=== PATIENT | female | born 1960 | race Caucasian/White ===

== ENCOUNTER → 2023-10-04 | Outpatient (CLI) | payer MEDICARE, BC ==
--- NOTE | 2023-10-04 13:36 | P.SLEEP ---
History of Present Illness DATE: 10/04/2023 CONSULTATION/NEW PATIENT EVALUATION HISTORY OF PRESENT ILLNESS/SLEEP-WAKE EVALUATION: 63-year-old lady had been aashish luated in the sleep center for possible obstructive sleep apnea hypopnea syndrome. Patient has history of obstructive sleep apnea hypopnea syndrome diagnosed about 15 years ago in another institution. She was on treatment with BiPAP for few years and then she stopped treatment secondary to insurance problems. SLEEP SCHEDULE: Usually sleep schedule from 9:30 PM to 7 AM 7 days a week. FALLING ASLEEP: Sometimes patient may have difficulties with falling asleep, use to read in bedroom. DURING SLEEP: Patient usually stays on the side position, has loud snoring and multiple awakenings from sleep 4 times with nocturia, dry mouth and grinding teeth. No history of hypnogogical hallucinations, sleep paralysis, or cataplexy. DURING THE DAY/WAKE STATE: In the morning patient wake up tired, has problems with concentration and difficulties to place attention. Positive history of claustrophobia. [place] sleepiness scale is 4. Sometimes patient takes nap at 2 PM. PAST MEDICAL HISTORY: Hypothyroidism, hyperlipidemia, anxiety, sinuses problems, headaches, acid reflux. PAST SURGICAL HISTORY: []. MEDICATIONS: UPPP. Tonsils and adenoidectomy and surgery for nasal septum deviation, gastric sleeve surgery. SOCIAL HISTORY: Positive for short period of smoking at age of 18, alcohol consumption occasional. FAMILY HISTORY: Hypertension, heart problems, diabetes. REVIEW OF SYSTEMS: Loud snoring, multiple awakenings from sleep. No fevers. No double vision. No recent chest pain. No shortness of breath. No abdominal pain. No bleeding episodes. No blood in urine. No seizure episodes. PHYSICAL EXAMINATION: GENERAL: A pleasant patient without any distress. VITAL SIGNS: BP 145/85, HR 78, RR 12, weight 197.8 pounds, height 5 foot 1 inches, body mass index 37.2. HEENT: PERRLA, EOMI. Evaluation of oropharynx showed tongue protrudes midline, low position of soft palate Mallampati 4, no uvula. NECK: Supple. No JVD. Thyroid is not palpable. 16.5 inches in circumference. LUNGS: Clear to percussion and to auscultation. Good air exchange. No wheezing or rhonchi. HEART: S1, S2 regular. No murmurs, gallops or rubs. ABDOMEN: Soft and nontender. Bowel sounds are present. No organomegaly appreciated. EXTREMITIES: No clubbing or cyanosis. YOUNG ADULT LIBRARIAN: Awake, alert, and oriented x3. Cranial nerves 2 to 7 intact. There is no fasciculation or atrophy noted. No focal deficits observed. ASSESSMENT: 1. Loud snoring, extremely low position of soft palate Mallampati 4, wide neck 16.5 inches in circumference, multiple awakenings from sleep, history of obstructive sleep apnea in the past. Obstructive sleep apnea-hypopnea syndrome. 2. Obesity BMI 37.2. 3. Hypothyroidism. 4. Anxiety. 5 hyperlipidemia. 6 . History of sinuses problems. 7. Headaches. 8. Acid reflux. 9 . Status post UPPP, tonsillectomy, adenoidectomy and surgery for nasal septum deviation. 10. Status post gastric sleeve. PLAN: 1. Polysomnography for evaluation of patient's breathing during sleep. 2. CPAP/BiPAP titration if sleep study confirms obstructive sleep apnea- hypopnea syndrome. 3. Preferable position during sleep on the side. 4. No driving if patient feels any sleepiness. Patient is aware of civil and criminal liability for unsafe driving. 5. Sleep hygiene with regular sleep time for at least 7.5-8 hours. 6. Watching and losing weight. Thank you very much for referring this patient for consultation. Sincerely, Naun Rivas MD, PhD, FAASM. Diplomat of [place], Sleep Medicine Board by [employer] Operator [facility] [place] Sleep Note - Sleep Note Sleep Note: Temperature: Pulse Rate: Respiratory Rate: Blood Pressure: SpO2: Height: Weight: BMI: Neck Circumference:
== END | disposition home or self-care (01) ==
LOC: 3 N SLEEP 13:04
PROVIDERS: ATTEND Internal Medicine
DX: G47.33 Obstructive sleep apnea (adult) (pediatric) (principal); E66.9 Obesity, unspecified; E03.9 Hypothyroidism, unspecified; F41.9 Anxiety disorder, unspecified; E78.5 Hyperlipidemia, unspecified; J32.9 Chronic sinusitis, unspecified; K21.9 Gastro-esophageal reflux disease without esophagitis; R06.83 Snoring; R51.9 Headache, unspecified; Z68.37 Body mass index [BMI] 37.0-37.9, adult; Z99.89 Dependence on other enabling machines and devices; Z98.890 Other specified postprocedural states; Z98.84 Bariatric surgery status; Z90.89 Acquired absence of other organs
CPT/HCPCS: 99202

== ENCOUNTER 2023-10-17 19:24 | Outpatient (CLI) | payer MEDICARE, BC ==
--- NOTE | 2023-10-19 13:30 | P.PCN ---
Description of Procedure: POLYSOMNOGRAPHY REPORT PROCEDURE(S)/DATE(S): Polysomnography 10/17/2023 CLINICAL: Patient has been seen in the sleep center for evaluation of obstructive sleep apnea-hypopnea syndrome. Please see my consultation. Sleep study has been done for evaluation of patient breathing during the sleep. PROCEDURE: The standard montage for clinical polysomnography included the electroencephalogram, the electrooculogram, the mentalis surface electromyography and Lead II cardiography. The respiratory battery consisted of measurements of nasal/buccal air flow, pressure transducer measurements from nose, thoracic and/or abdominal effort and intercostal surface electromyography. Video monitoring has been done to check for any parasomnia events. Nocturnal oxyhemoglobin saturations were obtained by finger oximetry. Step-wiley titration with positive airway pressure was utilized to control the respiratory events, if necessary. RESULTS: During the diagnostic sleep study sleep efficiency was slightly decreased to 82.8%. Latency to sleep onset was normal at 21.0 min. Sleep architecture showed stage NI was slightly increased to 10.6%, Delta sleep was practically absent 0.3%, REM sleep was decreased to 10.6%. Respiratory channel showed 3 obstructive apneas, 0 mixed apneas, 0 central apneas, 108 hypopneas with lowest oxygen level 83%. Total apnea hypopnea index was 20.0. Heart rate was in the range between 67 to 74, average 70. EMG showed 0.9 periodic limb movements per hour. IMPRESSIONS: 1. Moderate obstructive sleep apnea hypopnea syndrome. 2. No significant periodic limb movements have been documented. Please see other impressions from consultation PLAN: 1. The patient will have PAP titration for correction of respiratory abnormalities during the sleep. 2. Losing weight program. 3. Sleep hygiene with regular time in bed for at least 7-1/2 hours. 4. No driving if feeling sleepiness. Thank you very much for allowing me to participate in the management of your patient. Sincerely, Naun Rivas MD, PhD, FAASM. Diplomat of [employer], Sleep Medicine Board by [employer] Jar Capper [facility] [place]
== END 2023-10-18 05:40 | disposition home or self-care (01) ==
LOC: 3 N SLEEP 19:24
PROVIDERS: ATTEND Internal Medicine
DX: G47.33 Obstructive sleep apnea (adult) (pediatric) (principal)
CPT/HCPCS: 95810

== ENCOUNTER 2023-11-13 19:33 | Outpatient (CLI) | payer MEDICARE, BC ==
--- NOTE | 2023-12-13 11:15 | P.PCN ---
Description of Procedure: CLINICAL: Titration with positive air pressure has been done for correction of respiratory abnormalities during sleep. DESCRIPTION OF PROCEDURE: The standard montage for clinical polysomnography included the electroencephalogram, the electrocardiogram, the mentalis surface electromyography and Lead II cardiography. The respiratory battery consisted of measurements of nasal /buccal air flow, pressure transducer measurements from the nose, thoracic and /or abdominal effort and intercostal surface electromyography. Video monitoring has been done to check for any parasomnia events. Nocturnal oxyhemoglobin saturations were obtained by finger oximetry. Step-wiley titration with positive airway pressure was utilized to control respiratory events. Raw data of sleep recording has been reviewed and is adequate. RESULTS: Sleep efficiency was slightly decreased to 81.7%. Latency to sleep onset was in short range 7.0 minutes.]. Sleep architecture showed stage N1 significantly increased to 17.6%, Delta sleep was normal 8.5%, REM sleep extremely short 5.6%. Heart rate was minimum 62 BPM, maximum 70 BPM, average 66 BPM. EMG showed 44.5 periodic limb movements per hour with 1.0 micriarousals per hour. PAP titration have been done with CPAP up to the pressure 14 cm H2O. Patient had problems with CPAP, switched to BPAP. BPAP titrated up to 18/14 cm H2O. The best results were at the pressure 11 and 17/13 cm H2O. Apnea hypopnea index reduced to 3.1-7.2 at that level of pressure. IMPRESSION: 1. Obstructive sleep apnea hypopnea syndrome improved with PAP treatment. 2. Significant periodic limb movements have been documented. Please see other impressions from consultation. PLAN: 1. The patient will have treatment with positive air pressure equipment with the level of pressure auto BiPAP with maximal inspiratory pressure 17 and minimal expiratory pressure 5 cm H2O and should use it every night for the whole night. 2. Watching and losing weight. 3. Sleep hygiene with regular time in bed for at least 8 hours. 4. No driving if feeling any sleepiness. 5. I will see the patient for follow up visit to explain the results of the test, recommendations, check compliance with treatment and make any necessary adjustment related to mask fitting, pressure and humidification. 6. Please check iron profile including ferritin level. Low level of iron may increase risk for periodic limb movements Thank you very much for allowing me to participate in the management of your patient. Sincerely, Naun Rivas MD, PhD, FAASM Diplomat of [place] [employer] Sleep Medicine Board of [place] [employer] Engineer of [facility] [place]
== END 2023-11-14 05:35 | disposition home or self-care (01) ==
LOC: 3 N SLEEP 19:33
PROVIDERS: ATTEND Internal Medicine
DX: G47.33 Obstructive sleep apnea (adult) (pediatric) (principal); G47.61 Periodic limb movement disorder
CPT/HCPCS: 95811

== ENCOUNTER → 2024-03-25 | Outpatient (CLI) | payer MEDICARE, BC ==
--- NOTE | 2024-04-30 11:46 | PN ---
PROGRESS NOTE DATE OF SERVICE: 03/25/2024 A 64-year-old lady has been followed in sleep center for treatment of obstructive sleep apnea-hypopnea syndrome. This is her first visit after she received CPAP equipment. The patient was able to use CPAP equipment every night, feels better with the machine, sleeps well. [place] Sleepiness Scale is 3, which is normal. No snoring. I checked CPAP unit, AutoPAP 5-17 cm of water, usage /30 nights and 24/30 nights for more than 4 hours which is great compliance. Average 7.1 hours per night. Leak is 12 L/minute, acceptable. Apnea-hypopnea index slightly increased to 7.4, which includes central apnea-hypopnea index 3.7. MEDICATIONS: 1. Levothyroxine. 2. Atorvastatin. 3. Xanax. PHYSICAL EXAMINATION: GENERAL: The patient in no distress. VITAL SIGNS: BP 167/82, HR 78, RR 16, weight 199.6 pounds, temperature 98.4. HEENT: PERRLA. EOMI. LUNGS: Clear. HEART: S1, S2 regular. ABDOMEN: Soft, nontender. EXTREMITIES: No edema. CHAR HOUSE SUPERVISOR: No focal deficit. IMPRESSION: 1. Obstructive sleep apnea-hypopnea syndrome. The patient demonstrated great compliance with treatment, benefitting from treatment. 2. Mild obesity. 3. Hypothyroidism. 4. Hyperlipidemia. 5. History of anxiety. PLAN: 1. Continue treatment with CPAP every night for the whole night. 2. Watching and losing weight. 3. Sleep hygiene and regular time in bed for at least 8 hours. 4. No driving if feeling sleepiness. 5. Followup visit in 6 months or earlier if the patient has any problems. Thank you very much for allowing me to participate in management of your patient. MMODL / IJN: [id number] /
== END ==
LOC: 3 N SLEEP 13:10
PROVIDERS: ATTEND Internal Medicine
CPT/HCPCS: 99212